=== PATIENT | female | born 1995 ===

== ENCOUNTER 2018-08-30 09:57 | Emergency (ER) | payer SELFPAY ==
[2018-08-30 10:04] VITALS: BMI 30.9
[2018-08-30 10:05] VITALS: TEMP 97.6; O2SAT 100
--- NOTE | 2018-08-30 11:25 | RAD ---
Date of service: 08/30/2018 HISTORY: cough COMPARISON: No prior. TECHNIQUE: Chest PA and lateral views FINDINGS: LUNGS: No active pulmonary disease. PLEURA: No significant pleural effusion identified. No pneumothorax apparent. CARDIOVASCULAR: No aortic atherosclerotic calcification present. Normal cardiac size. No pulmonary vascular congestion. OSSEOUS STRUCTURES: No significant abnormalities. VISUALIZED UPPER ABDOMEN: Normal. OTHER FINDINGS: None. IMPRESSION: No active disease.
--- NOTE | 2018-08-30 12:01 | ED PDOC ---
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 Patient was in triage reporting chest pain after smoking hookah yesterday. Patient now claims she is experiencing shortness of breath. Patient denies history of asthma. During evaluation of patient she received a phone call and then refused to answer any further question from either the nurse or doctor. PCP; None Provided Past Medical History Reviewed: Historical Data, Nursing Documentation, Vital Signs Vital Signs: Last Vital Signs Temp 97.6 F 08/30/18 10:04 Pulse 95 H 08/30/18 10:04 Resp 22 08/30/18 10:04 BP 117/65 08/30/18 10:04 Pulse Ox 100 08/30/18 10:04 - Medical History PMH: Anemia Denies: Asthma, Diabetes, Hepatitis, HIV, HTN, Seizures, Sexually Transmitted Disease - Surgical History Surgical History: No Surg Hx - Family History Family History: States: Unknown Family Hx - Immunization History Hx Tetanus Toxoid Vaccination: No Hx Influenza Vaccination: No Hx Pneumococcal Vaccination: No - Home Medications Home Medications: Ambulatory Orders Medication Instructions Recorded Amoxicillin 500 mg PO TID #21 tab 08/21/18 Ibuprofen [Motrin] 600 mg PO Q6H #20 tab 08/21/18 - Allergies Allergies/Adverse Reactions: Allergies Allergy/AdvReac Type Severity Reaction Status Date / Time No Known Allergies Allergy Verified 08/21/18 22:55 Review of Systems ROS Statement: Except As Marked, All Systems Reviewed And Found Negative Cardiovascular: Positive for: Chest Pain Respiratory: Positive for: Shortness of Breath Physical Exam - Reviewed Nursing Documentation Reviewed: Yes Vital Signs Reviewed: Yes - Physical Exam Appears: Positive for: No Acute Distress Head Exam: Positive for: ATRAUMATIC, NORMAL INSPECTION, NORMOCEPHALIC Skin: Positive for: Normal Color, Warm, DRY Eye Exam: Positive for: EOMI, Normal appearance, PERRL ENT: Positive for: Normal ENT Inspection Neck: Positive for: Normal, Painless ROM, Supple Cardiovascular/Chest: Positive for: Regular Rate, Rhythm. Negative for: Murmur Respiratory: Positive for: Normal Breath Sounds. Negative for: Respiratory Distress Gastrointestinal/Abdominal: Positive for: Normal Exam, Soft. Negative for: Tenderness Back: Positive for: Normal Inspection. Negative for: L CVA Tenderness, R CVA Tenderness, Vertebral Tenderness Extremity: Positive for: Normal ROM. Negative for: Pedal Edema, Deformity Neurological/Psych: Positive for: Alert, Oriented (x3) - ECG O2 Sat by Pulse Oximetry: 100 (RA) Pulse Ox Interpretation: Normal Medical Decision Making Medical Decision Making: Time: 1036 Impression: SOB and Chest Discomfort (Low Cardiac Etiology); Esophageal/Tracheal Irrittation Caused by Possible Reaction to Smoking Hookah Plan: EKG Crisis Evaluation CXR Motrin 800 mg PO Reevaluation Scribe Attestation: Documented by Duke Nelson, acting as a scribe for Ebony Tracey MD. Provider Scribe Attestation: All medical record entries made by the Scribe were at my direction and personally dictated by me. I have reviewed the chart and agree that the record accurately reflects my personal performance of the history, physical exam, medical decision making, and the department course for this patient. I have also personally directed, reviewed, and agree with the discharge instructions and disposition. Disposition - Clinical Impression Clinical Impression: Sore throat, Smoke hypersensitivity - Disposition Disposition: Routine/Home Disposition Time: 12:01 Condition: IMPROVED Additional Instructions: Smoking any substance can cause irritation to the throat and lungs and therefore should be avoided. Take Motrin or Tylenol for pain. Follow up with primary medical doctor. Instructions: Sore Throat, Adult (DC) Forms: [employer] (Mosotho) Print Language: TURKMEN
[2018-08-30 12:13] VITALS: BP 115/58; PULSE 90; RESP 18
--- NOTE | 2018-08-30 21:16 | CARD ---
APPROVED REPORT Date of service: 08/30/2018 EKG Measurement Heart [id number] <Conclusion> Normal sinus rhythm Normal ECG
== END 2018-08-30 12:07 | disposition home or self-care (01) ==
LOC: H.ER 09:57
DX: J02.9 Acute pharyngitis, unspecified (principal); F17.200 Nicotine dependence, unspecified, uncomplicated; D64.9 Anemia, unspecified; F41.9 Anxiety disorder, unspecified; J44.9 Chronic obstructive pulmonary disease, unspecified; R07.89 Other chest pain